=== PATIENT | female | born 1975 | race Caucasian/White ===

== ENCOUNTER 2024-10-28 13:39 | Outpatient (AMB) | payer BC, SELFPAY ==
[2024-10-28 14:14] VITALS: BP 152/93; PULSE 82; RESP 18; O2SAT 98; BMI 34.1
--- NOTE | 2024-10-28 14:14 | GSCOFFNT_ITS ---
[facility] - [facility] 10/28/24 14:14 Height 1.73 m Height Method Stated Weight 101.775 kg Weight Measurement Method Standing Scale BMI 34.1 BP 152/93 H Blood Pressure Source Automatic Cuff Blood Pressure Location Right Upper Arm Position Sitting Respiration 18 Pulse 82 Pulse Source Monitor Pulse Oximetry (%) 98 Oxygen Delivery Method Room Air Med/Allergies Allergies & Medications Allergies No Known Drug Allergies Allergy (Verified 10/28/24 14:15) Medication Reconciliation No Known Home Medications 10/28/24 [History Confirmed 10/28/24] MA Intake Visit Data Collection New Patient or Established: Established Patient (seen at [facility] within 3 years) Seen by Clinical Staff ONLY (RN/MA): No Reason for Visit:: HEMORRHOIDS REFERRALS Pain Present Currently: Yes Pain Location: Buttock Pain scale:: 2 Pain Scale Used: Mark-Palacios/Numerical Silver Cleaner Required: No PCP or OBGYN visit in last 3 months: Yes Hx Now: No Do You Feel Safe at Home: Yes Authorities Contacted: N/A Smoking Status Smoking Status: Never smoker Immunization / Flu Flu Vaccine in the Last 12 Months: No Flu Vaccine Exclusion Criteria: No Exclusion Criteria Past Medical History Surgical History OTHER SURGICAL HX: Other surgical history: C-SECTIONS X 3 Social History SMOKING STATUS: Smoking status: Never smoker Travel Risk Travel Hx Recent Travel: No HPI HPI Narrative 49F referred for symptomatic hemorrhoids. Pt states she has long dealt with them but they have been more bothersome this past year, with constant discomfort, frequent itching and only rare episodes of blood with wiping. She states she has had constipation chronically, tending not to have a BM daily and when she does go she has to strain and the stool is somewhat hard. She reports drinking water only and keeps a bottle with her constantly, and she has tried fiber supplementation which has helped somewhat but at the moment she is taking Gonzalez only. Pt has tried sitz baths, over the counter creams and prescription creams and feels that each remedy helps only somewhat. She does have episodes of severe pain with defecation and has not yet had a colonoscopy PMH: None PShx: None Meds: None Allergies: NKDA Family hx: No known CRC ROS Review of Systems Systems Reviewed: All systems reviewed, normal except as documented Objective/Exam General General Appearance: alert, cooperative and well groomed Resp Respiratory exam: Absent respiratory distress Rectal Rectal exam: Present normal rectal tone, hemorrhoids (external hemorrhoidal skin tag at the left posterior anus) and other (healing sentinel pile at the anterior anus which is mildly tender to palpation) Assessment & Plan Diagnosis / Problem List (1) Hemorrhoids: Status: Acute Assessment & Plan: 49F with chronic constipation and symptomatic hemorrhoids. I explained that optimizing her bowel movements can help the hemorrhoids to heal and may allow her to avoid surgery altogether, but if her hemorrhoids persist after minimizing constipation she will at least be better positioned for recovery from surgery at that point. I recommended she initiate metamucil fiber in powder form and take three times a day as tolerated. I will also schedule a diagnostic colonoscopy and enumerated risks of bleeding, perforation requiring emergency surgery as well as the potential for needing to abort prematurely. All questions were answered and pt is agreeable to proceeding (2) Anal fissure: Status: Acute Assessment & Plan: Pt reports severe pain with defecation and has signs of a healing anal fissure on exam. I offered compound cream and informed pt it will likely cost around $100 which she stated is acceptable Office Procedures GNS Level of Care Nursing/Assessment Patient Status: Initial/New Patient Nursing Assessment/Reassesment: Medication Reconciliation, Update PMH in EMR and Vital Signs Coordination of Care: Complex Care and Chronic Disease 1-5, Education Complex Pt/Fam, Consent,records obtained, informed consent, Results/Orders obtained and Staff clarify orders New Patient Charge New Patient Point Assignment: [id number] New Patient Point Charge: WINDOW SHADE CUTTER AND MOUNTER Level 3 (9301-4069) Established Patient Charge Established Patient Point Charge: EP Level 3 (80-115) Patient Portal Questionaires Social History Tobacco History Smoking Status: Never smoker Domestic Abuse History Do You Feel Safe at Home: Yes Review of Systems Report any current symptoms Only answer those that you have currently: Past Medical History Past Medical History Have you ever been diagnosed with any of the following:
== END 2024-10-28 14:56 | disposition home or self-care (01) ==
PROVIDERS: PCP Nurse Practitioner Family; Referring Provider Nurse Practitioner Family; Supervising Provider Surgery; Visit Provider Surgery
DX: K64.9 Unspecified hemorrhoids (principal); K60.2 Anal fissure, unspecified
CPT/HCPCS: 99203; 99213; G0463

== ENCOUNTER 2024-11-16 08:40 | Day surgery (SDC) | payer BC, SELFPAY ==
[2024-11-15 15:08] VITALS: BMI 33.4
[2024-11-16] VITALS (9 sets, daily range): BP systolic 126–182; BP diastolic 72–103; PULSE 53–81; RESP 12–22; TEMP 36.4–36.6; O2SAT 98–100; BMI 33.5
[2024-11-16] MEDS: fentaNYL CIT INJ 50 mCg/ML AMP 2ML (ASD USE ONLY) IVP (10:43)
[2024-11-16] MEDS: RINGERS LACTATED 1000 ML 1,000 ML 125 ML IV (10:43)
[2024-11-16] MEDS: MIDAZOLAM INJ 1 MG/ML VIAL 2 ML (ASD USE ONLY) 2 MG IVP (10:43)
== END 2024-11-16 11:28 | disposition home or self-care (01) ==
PROVIDERS: PCP Nurse Practitioner Family; Referring Provider Surgery; Visit Provider Surgery
PROC: 0DBE8ZX Excision of Large Intestine, Via Natural or Artificial Opening Endoscopic, Diagnostic (ICD-10-PCS; CPT 45380; principal; 2024-11-16 10:00)
DX: K64.9 Unspecified hemorrhoids (principal); K60.2 Anal fissure, unspecified
CPT/HCPCS: 45378; 81025; J1200; J2250; J3010; J7120

== ENCOUNTER 2024-11-29 15:34 | Outpatient (AMB) | payer BC, SELFPAY ==
--- NOTE | 2024-11-29 15:35 | GSCOFFNT_ITS ---
Vital Signs - [facility] 11/29/24 15:41 Height 1.73 m Height Method Stated Weight 101.775 kg Weight Measurement Method Standing Scale BMI 34.1 BP 142/94 H Blood Pressure Source Automatic Cuff Blood Pressure Location Left Upper Arm Position Sitting Respiration 16 Pulse 60 Pulse Source Monitor Temp 98.3 F Temp Source Temporal Artery Scan Pulse Oximetry (%) 98 Oxygen Delivery Method Room Air Med/Allergies Allergies & Medications Allergies No Known Drug Allergies Allergy (Verified 11/29/24 15:42) Medication Reconciliation No Known Home Medications 11/15/24 [History Confirmed 11/29/24] MN Intake Visit Data Collection New Patient or Established: Established Patient (seen at [facility] within 3 years) Reason for Visit:: F/U COLONOSCOPY Pain Present Currently: Yes Pain Scale Used: Mark-Palacios/Numerical Safety And Skill Based Pay Manager Required: No PCP or OBGYN visit in last 3 months: Yes Hx Now: No Do You Feel Safe at Home: Yes Authorities Contacted: N/A Smoking Status Smoking Status: Never smoker Immunization / Flu Flu Vaccine in the Last 12 Months: No Flu Vaccine Exclusion Criteria: Refused by Patient Past Medical History Past Medical History NEUROLOGIC: Positive Neurological Disorders and Migraine; Negative Seizures CARDIAC: Negative Cardiac Disorders or Congestive Heart Failure RESPIRATORY: Negative Chronic Obstructive Pulmonary Disease (COPD) GASTROINTESTINAL: Positive Gastrointestinal Disorders (ANAL FISSURE) and Hemorrhoids GENITOURINARY: Negative Genitourinary Disorders or Renal Disease ENDOCRINE: Negative Endocrine Disorders, Diabetes Mellitus Type 1 or Diabetes Mellitus Type 2 HEMATOLOGIC: Negative Blood Disorders OTHER HISTORY: Negative Blood Transfusions, Blood Transfusion Reaction, Anesthesia Reactions or Cancer Surgical History SURGICAL: Positive Section (X3) Social History SMOKING STATUS: Smoking status: Never smoker ALCOHOL: Alcohol Intake: Current HOUSING: Housing: House HPI HPI Narrative 49F referred for symptomatic hemorrhoids here for follow up of colonoscopy. Pt had no findings aside from hemorrhoids and she states her constipation is improved but her hemorrhoid symptoms are still very bothersome. She continues to have severe pain affecting her activities and becomes tearful discussing it ROS Review of Systems Systems Reviewed: All systems reviewed, normal except as documented Objective/Exam General General Appearance: alert, cooperative and well groomed Resp Respiratory exam: Absent respiratory distress Assessment & Plan Diagnosis / Problem List (1) Hemorrhoids: Status: Acute Assessment & Plan: 49F now s/p colonoscopy which was negative aside from hemorrhoids, with persistent hemorrhoid symptoms despite improvement in her bowel habits. As she is having such severe symptoms I did recommend surgery and I explained that excisional hemorrhoidectomy will better serve her as compared to THD. I explained benefits/risks including severe pain, bleeding, infection and hemorrhoid recurrence. All questions were answered and pt is agreeable to proceeding Office Procedures GNS Level of Care Nursing/Assessment Patient Status: Established Patient Nursing Assessment/Reassesment: Medication Reconciliation, Update PMH in EMR and Vital Signs Coordination of Care: Complex Care and Chronic Disease 1-5, Consent,records obtained, informed consent, Education Simp Pt/Fam, Results/Orders obtained and Staff clarify orders Established Patient Charge Established Patient Point Assignment: 90 Established Patient Point Charge: EP Level 3 (80-115) Patient Portal Questionaires Social History Living Situation History Housing: House Tobacco History Smoking Status: Never smoker Alcohol History Alcohol Intake: Current Domestic Abuse History Do You Feel Safe at Home: Yes Review of Systems Report any current symptoms Only answer those that you have currently: Past Medical History Past Medical History Have you ever been diagnosed with any of the following: Neurological Problems Seizures: No Migraine: Yes Cardiology Problems Congestive Heart Failure: No Respiratory Problems Chronic Obstructive Pulmonary Disease (COPD): No Stomache/Intestinal Problems Hemorrhoids: Yes Genital/Urinary Problems Renal Disease: No Endocrine Problems Diabetes Mellitus Type 1: No Diabetes Mellitus Type 2: No Other Problems Blood Transfusions: No Blood Transfusion Reaction: No Anesthesia Reactions: No Cancer: No
[2024-11-29 15:41] VITALS: BP 142/94; PULSE 60; RESP 16; TEMP 36.8; O2SAT 98; BMI 34.1
== END 2024-11-29 16:00 | disposition home or self-care (01) ==
LOC: HODSRG 15:34
PROVIDERS: PCP Nurse Practitioner Family; Referring Provider Nurse Practitioner Family; Supervising Provider Surgery; Visit Provider Surgery
DX: K64.9 Unspecified hemorrhoids (principal)
CPT/HCPCS: 99213; G0463

== ENCOUNTER 2024-12-15 05:45 | Day surgery (SDC) | payer BC, SELFPAY ==
[2024-12-13 11:44] VITALS: BMI 33.5
[2024-12-13 13:11] LABS: Basophils # (Auto) 0.0 Thou/mm3 (0.0-0.2); Basophils % (Auto) 1 % (0-2.5); Eosinophils # (Auto) 0.1 Thou/mm3 (0.0-0.5); Eosinophils % (Auto) 2 % (0-10); Hematocrit 30.6 % (36.0-46.0); Hemoglobin 9.2 g/dL (12.0-16.0); Immature Granulocytes Auto 0.01 Thou/mm3 (0.00-0.00); Lymphocytes # (Auto) 1.6 Thou/mm3 (1.0-4.8); Lymphocytes % (Auto) 36 % (10-50); Mean Corpuscular HGB Conc 30.1 g/dl (31.0-37.0); Mean Corpuscular Hemoglobin 21.7 pg (25.0-35.0); Mean Corpuscular Volume 72 fL (80-100); Monocytes # (Auto) 0.5 Thou/mm3 (0.0-0.8); Monocytes % (Auto) 11 % (0-12); Neutrophils # (Auto) 2.3 Thou/mm3 (1.8-7.7); Neutrophils % (Auto) 50 % (37-80); Nucleated Red Blood Cell # 0.00 Thou/mm3 (0.00-0.00); Nucleated Red Blood Cell % 0 /100 WBC (0); Platelet Count 373 Thou/mm3 (140-440); RDW Standard Deviation 45.7 fL (36.4-46.3); Red Blood Count 4.23 Miln/mm3 (4.00-5.20); White Blood Count 4.6 Thou/mm3 (3.6-11.0)
[2024-12-13 13:22] LABS: Anion Gap 10 (7-16); BUN/Creatinine Ratio 11 Ratio (12-20); Blood Urea Nitrogen 9 mg/dL (9-23); Calcium 9.3 mg/dL (8.3-10.6); Carbon Dioxide 24.5 mMol/L (20.0-31.0); Chloride 105 mMol/L (98-107); Creatinine (Component) 0.8 mg/dL (0.6-1.3); Estimated Creatinine Clearance 107.5 mL/min (>60); Glucose 87 mg/dL (74-106); INR 1.0 (0.9-1.3); Osmolality,Calculated 275 (275-295); Partial Thromboplastin Time 25.8 Seconds (22.0-36.0); Potassium 3.9 mMol/L (3.4-5.1); Prothrombin Time 10.9 Seconds (9.0-12.2); Sodium 139 mMol/L (136-145); eGFR > 60 See Note
[2024-12-15] VITALS (8 sets, daily range): BP systolic 122–164; BP diastolic 46–99; PULSE 65–93; RESP 12–17; TEMP 36.2–37.4; O2SAT 97–100; BMI 33.6
[2024-12-15] MEDS: RINGERS LACTATED 1000 ML 1,000 ML 20 ML IV (07:02)
[2024-12-15] MEDS: MIDAZOLAM INJ 1 MG/ML VIAL 2 ML 2 MG IVP (07:02)
--- NOTE | 2024-12-15 07:15 | CHAP ---
Visited briefly with patient and spouse and had prayer.
--- NOTE | 2024-12-15 08:51 | ESOP_ITS ---
Date of Procedure 12/15/24 Pre Op Diagnosis Symptomatic hemorrhoids Post Op Diagnosis Same Procedure Excisional hemorrhoidectomy Findings Grade 3 hemorrhoids at the right anterior, posterior and left lateral positions Procedure Description After discussion of risks and benefits and maximal medical therapy, patient was brought to the operating room, SCDs were placed and general anesthesia with LMA was induced. She was placed in lithotomy position with proper padding and was prepped and draped in the usual sterile fashion. After timeout a AFUA was performed which was normal aside from known hemorrhoids. A lubricated Moore retractor was placed into the anus and first the largest hemorrhoid was addressed which was in the right posterior position. A figure of 8 suture was placed at the apex of this hemorrhoid using a 2-0 chromic suture and it was not cut so that it could be used after the hemorrhoid was excised. I then used a he mostat to grasp the exterior portion of the hemorrhoid and incised the anoderm with a #15 blade. Using a hemostat I carefully dissected the internal sphincter muscles away from the hemorrhoidal tissue and then excised the hemorrhoid tissue using a hand-held harmonic scalpel. Hemostasis was achieved with direct pressure and electrocautery and the anal mucosa was reapproximated using the previously placed 2-0 chromic suture in a running and locking fashion. The right anterior and left lateral hemorrhoids were excised in the same fashion. Again hemostasis was achieved with direct pressure and reinforced with Surgicel gauze. Left and right pudendal nerve blocks were performed for total of 20 cc of half percent Marcaine. Patient was returned to supine position and extubated without complication. She was brought to PACU in stable condition Pathology / specimen Other (Right anterior and posterior hemorrhoids, left lateral hemorrhoid) Estimated Blood Loss 25 Surgeon Toya Mccann MD Surgical Staff Operation Date: 12/15/24 07:30 Case Staff [employer] CORE FEEDER: Shahab Hassan
--- NOTE | 2024-12-15 08:55 | PD.SURDS ---
Planned Discharge Date 12/15/24 DS: Providers Provider Primary care physician: Alisha Cazares NP Attending Provider on Admission: Toya Mccann MD Attending Provider on DC: Toya Mccann MD Discharging Provider: Toya Mccann MD Diagnosis Discharge Diagnosis (1) Hemorrhoids: Status: Acute Problem List Completed Was Problem List Reviewed/Reconciled?: Yes Exam Vital Signs Temp Pulse Resp BP Pulse Ox 99.3 F 73 17 164/90 H 99 12/15/24 06:42 12/15/24 06:42 12/15/24 06:42 12/15/24 06:42 12/15/24 06:42 Constitutional Constitutional: no acute distress Discharge Plan Plan Patient Disposition: HOME (Self Care) Prescriptions/Referrals Prescriptions/Med Rec: No Action oxycodone-acetaminophen 5-325 mg tablet 1 tab PO Q4H MDD 6 tabs PRN (Reason: pain) Qty: 30 0RF Rx Instructions: Take 1 tablet every 4-6 hours as needed for moderate to severe pain ibuprofen 800 mg tablet 800 mg PO Q6H PRN (Reason: pain) Qty: 30 0RF Rx Instructions: Take 1 tablet every 6 hours as needed for mild to moderate pain docusate sodium [Colace] 100 mg capsule 100 mg PO QDAY PRN (Reason: constipation) Qty: 30 0RF Rx Instructions: Take 1 tablet as needed daily for constipation Referrals: Alisha Cazares NP [Primary Care Provider] Toya Mccann MD [Physician, General Surgery] Referral Note: You will receive a phone call to confirm a follow-up appointment with me in 6 weeks Patient/Caregiver Discharge Instructions Other Discharge Activity Instructions:: You may resume sitz baths as needed for pain, bleeding and swelling starting tomorrow 12/16 Avoid constipation and diarrhea You may take ibuprofen in between doses of Percocet or instead of Percocet for mild to moderate pain Each medication can be taken every 6 hours so if needed you can alternate in such a way that you only need to wait 3 hours between doses If you develop pain that is not controlled by medications, inability to urinate, fever or bleeding that does not stop please seek care in ER Education Materials: Anesthesia: General Anesthesia, Surgery Anesthesia After, Discharge Instructions for ..., Treating Hemorrhoids: Surgery, Preventing Surgical Site Infections, Taking a Sitz Bath, [facility] General SDC Instructions- Norwegian Print Language: Norwegian Stand Alone Forms: Laurie Award Info., Patient Portal Info Letter Results Results: Laboratory Laboratory results: results reviewed PROCEDURES: Procedure Date 12/15/24 Procedures Excisional hemorrhoidectomy
--- NOTE | 2024-12-15 09:10 | SUR.PHASEI ---
0910: Pt. AAOx4, vitals stable, breathing unlabored, complaint of pain, pain med administered by Zachary BLACK at bedside, no complaint of nausea, ABD to rectum CDI, peripad in place with scant amount of blood (pt. on menstrual period), report received from Zachary BLACK and Anna BRODY.
[2024-12-15] MEDS: METOCLOPRAMIDE INJ 5 MG/ML VIAL 2 ML 10 MG IVP (09:26)
[2024-12-15] MEDS: HYDROmorphone INJ 2 MG/ML VIAL 0.4 MG IVP (09:31)
[2024-12-15] MEDS: PROMETHAZINE INJ 12.5 MG in SODIUM CHLORIDE 0.9% 50 ML 2.5 MG IV (09:40)
--- NOTE | 2024-12-15 10:15 | SUR.PHASEII ---
1015: Pt. AAOx4, vitals stable, breathing unlabored, no complaint of pain or nausea, ABD Pad to rectum CDI, no active bleed noted, pt. tolerated sips of water well, pt. ambulated to wheelchair with steady gait and no assist, no complications. Gave discharge instructions to the pt. and her ride, both verbalized understanding and had no further questions. Pt. left with all personal belongings.
== END 2024-12-15 10:15 | disposition home or self-care (01) ==
PROVIDERS: PCP Nurse Practitioner Family; Referring Provider Surgery; Visit Provider Surgery
PROC: (CPT 46260; principal; 2024-12-15 07:30)
DX: K64.2 Third degree hemorrhoids (principal)
CPT/HCPCS: 46260; 36415; 80048; 85025; 85610; 85730; A4217; A4649; J0131; J1100; J1171; J1885; J2250; J2405; J2550; J2704; J2765; J3010; J3490; J7120; J1596; J1920

== ENCOUNTER 2025-01-10 08:43 | Outpatient (AMB) | payer BC, SELFPAY ==
--- NOTE | 2025-01-10 09:18 | GSCOFFNT_ITS ---
Vital Signs - [facility] 01/10/25 09:19 Height 1.73 m Height Method Stated Weight 99.847 kg Weight Measurement Method Standing Scale BMI 33.3 BP 170/100 H Blood Pressure Source Automatic Cuff Blood Pressure Location Left Upper Arm Position Sitting Respiration 18 Pulse 88 Pulse Source Monitor Temp 98.2 F Temp Source Temporal Artery Scan Pulse Oximetry (%) 90 L Oxygen Delivery Method Room Air Med/Allergies Allergies & Medications Allergies No Known Drug Allergies Allergy (Verified 01/10/25 09:19) Medication Reconciliation docusate sodium 100 mg capsule (Colace) 100 mg PO QDAY PRN constipation #30 caps 12/13/24 [Rx Confirmed 01/10/25] ibuprofen 800 mg tablet 800 mg PO Q6H PRN pain #30 tabs 12/13/24 [Rx Confirmed 01/10/25] oxycodone-acetaminophen 5 mg-325 mg tablet 1 tab PO Q4H PRN pain #30 tabs 12/13/24 [Rx Confirmed 01/10/25] oxycodone-acetaminophen 5 mg-325 mg tablet 1 tab PO Q4H PRN pain #60 tabs 12/31/24 [Rx Confirmed 01/10/25] tramadol 50 mg tablet 50 mg PO Q4H PRN pain #30 tabs 01/10/25 [Rx] MA Intake Visit Data Collection New Patient or Established: Established Patient (seen at [facility] within 3 years) Reason for Visit:: F/U COLONOSCOPY Pain Present Currently: Yes Pain Scale Used: Mark-Palacios/Numerical Solderer Assembler Required: No PCP or OBGYN visit in last 3 months: Yes Hx Now: No Do You Feel Safe at Home: Yes Authorities Contacted: N/A Smoking Status Smoking Status: Former smoker Immunization / Flu Flu Vaccine in the Last 12 Months: No Flu Vaccine Exclusion Criteria: Refused by Patient Past Medical History Past Medical History NEUROLOGIC: Positive Neurological Disorders and Migraine; Negative Seizures CARDIAC: Negative Cardiac Disorders or Congestive Heart Failure RESPIRATORY: Negative Chronic Obstructive Pulmonary Disease (COPD) GASTROINTESTINAL: Positive Gastrointestinal Disorders, Hemorrhoids and Obesity GENITOURINARY: Negative Genitourinary Disorders or Renal Disease REPRODUCTIVE: Positive Previous Pregnancies ENDOCRINE: Negative Endocrine Disorders, Diabetes Mellitus Type 1 or Diabetes Mellitus Type 2 HEMATOLOGIC: Positive Blood Disorders and Anemia PSYCHO/SOCIAL: Positive Anxiety OTHER HISTORY: Positive Anesthesia Reactions (extreme nausea) and Chicken Pox; Negative Hospitalization, Autoimmune Disease, Shingles, Blood Transfusions, Blood Transfusion Reaction or Cancer Family History FAMILY HISTORY: Negative Family Psychiatric Problems, Family Respiratory Disorders, Family Cardiac Disorders, Family Gastrointestinal Problems, Family Ca ncer, Family Surgery or Family Anesthesia Reaction Surgical History SURGICAL: Positive Tubal Ligation and Section (x3) Social History SMOKING STATUS: Smoking status: Former smoker ALCOHOL: Alcohol Intake: Current HOUSING: Housing: House [facility] HPI Narrative HISTORY OF PRESENT ILLNESS I, Toya Tyronabimael, have obtained verbal consent from the patient, to be recorded during this encounter which may include, but not limited to, medical history, examination, treatment plans, and relevant health information.? Patient was informed that recording will be read and reviewed by myself before inclusion in the medical chart. The patient is here for a follow-up of her hemorrhoidectomy completed 12/15/24. She reports overall improvement but experiences sensitivity in one area, particularly when walking or during prolonged bathroom visits. She has recently started her menstrual cycle, which she believes is causing additional discomfort and swelling in the surgical area. Prolonged sitting exacerbates the soreness, but she finds relief using a pad while driving. She occasionally notices minor bleeding, especially after frequent bathroom use, and infrequent itching. She also mentions an unusual discharge and occasional gas incontinence, suggesting that the surgical site may not be fully healed. She continues to take sitz baths after each bathroom visit but has not used any creams since the initial post- operative period. She had two refills of pain medication, which were not processed, and she requests a review of this as she still experiences occasional flare-ups, particularly during her menstrual cycle or after prolonged sitting. She finds Advil ineffective for these flare-ups and is seeking alternative pain management options. She recalls having to strain during urination immediately post-surgery, which resolved after two days. Her bowel movements have become more regular since the surgery, aided by fiber supplements and a daily scoop of MiraLAX. She has lost 7 pounds since the surgery and is considering returning to work on a part-time basis, initially working two 4-hour shifts per week. She has not yet resumed driving. ROS Review of Systems Systems Reviewed: All systems reviewed, normal except as documented Objective/Exam General General Appearance: alert, cooperative and well groomed Resp Respiratory exam: Absent respiratory distress Assessment & Plan Diagnosis / Problem List (1) Hemorrhoids: Status: Acute Assessment & Plan: Condition is improving with reduced pain levels. Occasional discharge and bleeding are normal at this stage. Continues to take fiber supplements and MiraLAX to maintain regular bowel movements. A prescription for tramadol will be provided for pain management. Risks of tramadol include potential drowsiness and dependency; benefits include better pain control compared to Advil. Alternatives discussed include continuing current pain management strategies. If there are any issues with the medication, prompt notification is advised. Follow-up appointment is scheduled for 3 weeks from now. (2) Hemorrhoids: Status: Acute Office Procedures GNS Level of Care Nursing/Assessment Patient Status: Established Patient Nursing Assessment/Reassesment: Medication Reconciliation, Update PMH in EMR and Vital Signs Coordination of Care: Complex Care and Chronic Disease 1-5, Consent,records obtained, informed consent, Education Simp Pt/Fam, Results/Orders obtained and Staff clarify orders Established Patient Charge Established Patient Point Assignment: 90 Established Patient Point Charge: EP Level 3 (80-115) Patient Portal Questionaires Social History Living Situation History Housing: House Tobacco History Smoking Status: Former smoker Alcohol History Alcohol Intake: Current Domestic Abuse History Do You Feel Safe at Home: Yes Review of Systems Report any current symptoms Only answer those that you have currently: Past Medical History Past Medical History Have you ever been diagnosed with any of the following: Neurological Problems Seizures: No Migraine: Yes Cardiology Problems Congestive Heart Failure: No Respiratory Problems Chronic Obstructive Pulmonary Disease (COPD): No Stomache/Intestinal Problems Hemorrhoids: Yes Obesity: Yes Genital/Urinary Problems Renal Disease: No Reproductive Problems Previous Pregnancies: Yes Endocrine Problems Diabetes Mellitus Type 1: No Diabetes Mellitus Type 2: No Blood Problems Anemia: Yes Psychologic Problems Anxiety: Yes Other Problems Hospitalization: No Autoimmune Disease: No Shingles: No Blood Transfusions: No Blood Transfusion Reaction: No Anesthesia Reactions: Yes (extreme nausea) Chicken Pox: Yes Cancer: No
[2025-01-10 09:19] VITALS: BP 170/100; PULSE 88; RESP 18; TEMP 36.8; O2SAT 90; BMI 33.3
== END 2025-01-10 09:18 | disposition home or self-care (01) ==
LOC: HODSRG 08:43
PROVIDERS: PCP Nurse Practitioner Family; Referring Provider Nurse Practitioner Family; Supervising Provider Surgery; Visit Provider Surgery
DX: Z48.815 Encounter for surgical aftercare following surgery on the digestive system (principal); E66.9 Obesity, unspecified; Z68.33 Body mass index [BMI] 33.0-33.9, adult
CPT/HCPCS: 99213; G0463

== ENCOUNTER 2025-01-31 09:54 | Outpatient (AMB) | payer BC, SELFPAY ==
[2025-01-31 10:01] VITALS: BP 137/85; PULSE 82; RESP 18; TEMP 36.8; O2SAT 98; BMI 33.6
--- NOTE | 2025-01-31 10:01 | PD.GSCLVISIT ---
Vital Signs - [facility] 01/31/25 10:01 Height 1.73 m Height Method Measured Weight 100.754 kg Weight Measurement Method Standing Scale BMI 33.6 BP 137/85 H Blood Pressure Source Automatic Cuff Blood Pressure Location Left Upper Arm Position Sitting Respiration 18 Pulse 82 Pulse Source Monitor Temp 98.3 F Temp Source Temporal Artery Scan Pulse Oximetry (%) 98 Oxygen Delivery Method Room Air Med/Allergies Allergies & Medications Allergies No Known Drug Allergies Allergy (Verified 01/31/25 10:07) Medication Reconciliation docusate sodium 100 mg capsule (Colace) 100 mg PO QDAY PRN constipation #30 caps 12/13/24 [Rx Confirmed 01/31/25] ibuprofen 800 mg tablet 800 mg PO Q6H PRN pain #30 tabs 12/13/24 [Rx Confirmed 01/31/25] oxycodone-acetaminophen 5 mg-325 mg tablet 1 tab PO Q4H PRN pain #30 tabs 12/13/24 [Rx Confirmed 01/31/25] oxycodone-acetaminophen 5 mg-325 mg tablet 1 tab PO Q4H PRN pain #60 tabs 12/31/24 [Rx Confirmed 01/31/25] tramadol 50 mg tablet 50 mg PO Q4H PRN pain #30 tabs 01/10/25 [Rx Confirmed 01/31/25] MA Intake Visit Data Collection New Patient or Established: Established Patient (seen at [facility] within 3 years) Seen by Clinical Staff ONLY (RN/MA): No Reason for Visit:: 3 WEEK F/U Pain Present Currently: No Pain Scale Used: [employer]/Numer[employer] Trainer Required: No PCP or OBGYN visit in last 3 months: Yes Hx Now: No Do You Feel Safe at Home: Yes Authorities Contacted: N/A Smoking Status Smoking Status: Former smoker Immunization / Flu Flu Vaccine in the Last 12 Months: Yes Flu Vaccine Exclusion Criteria: Already Received Past Medical History Past Medical History NEUROLOGIC: Positive Neurological Disorders and Migraine; Negative Seizures CARDIAC: Negative Cardiac Disorders or Congestive Heart Failure RESPIRATORY: Negative Chronic Obstructive Pulmonary Disease (COPD) GASTROINTESTINAL: Positive Gastrointestinal Disorders, Hemorrhoids and Obesity GENITOURINARY: Negative Genitourinary Disorders or Renal Disease REPRODUCTIVE: Positive Previous Pregnancies ENDOCRINE: Negative Endocrine Disorders, Diabetes Mellitus Type 1 or Diabetes Mellitus Type 2 HEMATOLOGIC: Positive Blood Disorders and Anemia PSYCHO/SOCIAL: Positive Anxiety OTHER HISTORY: Positive Anesthesia Reactions (extreme nausea) and Chicken Pox; Negative Hospitalization, Autoimmune Disease, Shingles, Blood Transfusions, Blood Transfusion Reaction or Cancer Family History FAMILY HISTORY: Negative Family Psychiatric Problems, Family Respiratory Disorders, Family Cardiac Disorders, Family Gastrointestinal Problems, Family Cancer, Family Surgery or Family Anesthesia Reaction Surgical History SURGICAL: Positive Tubal Ligation and Section (x3) Social History SMOKING STATUS: Smoking status: Former smoker ALCOHOL: Alcohol Intake: Current HOUSING: Housing: House HPI HPI Narrative 49F with history of symptomatic hemorrhoids status post excisional hemorrhoidectomy 12/15/2024 here for second scheduled follow-up. 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 She is not needing any remedies, simply takes baths as night as part of her regular hygiene but not needing any creams or suppositories. Overall she is feeling much better compared to surgery and in fact is returning to work today ROS Review of Systems Systems Reviewed: All systems reviewed, normal except as documented Objective/Exam General General Appearance: alert, cooperative and well groomed Resp Respiratory exam: Absent respiratory distress Assessment & Plan Diagnosis / Problem List (1) Hemorrhoids: Status: Acute Assessment & Plan: 49F status post excisional hemorrhoidectomy 12/15/2024, recovering well. Patient is encouraged to reach out with any concerns or questions Office Procedures GNS Level of Care Nursing/Assessment Patient Status: Established Patient Nursing Assessment/Reassesment: Medication Reconciliation, Update PMH in EMR and Vital Signs Coordination of Care: Complex Care and Chronic Disease 1-5, Education Complex Pt/Fam, Consent,records obtained, informed consent, Results/Orders obtained and Staff clarify orders Established Patient Charge Established Patient Point Assignment: 95 Established Patient Point Charge: EP Level 3 (80-115) Patient Portal Questionaires Social History Living Situation History Housing: House Tobacco History Smoking Status: Former smoker Alcohol History Alcohol Intake: Current Domestic Abuse History Do You Feel Safe at Home: Yes Review of Systems Report any current symptoms Only answer those that you have currently: Past Medical History Past Medical History Have you ever been diagnosed with any of the following: Neurological Problems Seizures: No Migraine: Yes Cardiology Problems Congestive Heart Failure: No Respiratory Problems Chronic Obstructive Pulmonary Disease (COPD): No Stomache/Intestinal Problems Hemorrhoids: Yes Obesity: Yes Genital/Urinary Problems Renal Disease: No Reproductive Problems Previous Pregnancies: Yes Endocrine Problems Diabetes Mellitus Type 1: No Diabetes Mellitus Type 2: No Blood Problems Anemia: Yes Psychologic Problems Anxiety: Yes Other Problems Hospitalization: No Autoimmune Disease: No Shingles: No Blood Transfusions: No Blood Transfusion Reaction: No Anesthesia Reactions: Yes (extreme nausea) Chicken Pox: Yes Cancer: No
== END 2025-01-31 10:42 | disposition home or self-care (01) ==
LOC: HODSRG 09:54
PROVIDERS: PCP Nurse Practitioner Family; Referring Provider Nurse Practitioner Family; Supervising Provider Surgery; Visit Provider Surgery
DX: Z48.815 Encounter for surgical aftercare following surgery on the digestive system (principal); E66.9 Obesity, unspecified; Z68.33 Body mass index [BMI] 33.0-33.9, adult
CPT/HCPCS: 99213; G0463